=== PATIENT | female | born 1945 | race Caucasian/White ===

== ENCOUNTER 2018-05-13 10:07 | Outpatient (CLI) | payer MEDICARE ==
--- NOTE | 2018-05-13 12:53 | MRI ---
MRI OF LEFT SHOULDER PERFORMED WITHOUT CONTRAST ENHANCEMENT: HISTORY: Left shoulder pain for a couple of months. FINDINGS: There are moderate AC joint hypertrophic changes present. The infraspinatus tendon is intact. Some subchondral cystic change near the insertion of the suprasp inatus tendon on the greater tuberosity and a low- to mid-grade undersurface tear, which is a very sm all focal area measuring 5 mm in size involving the undersurface fibers. The subscapularis muscle and tendon are intact. The biceps tendon is normal in position in the bicip ital groove. The intraarticular portion of the biceps is difficult to visualized. It appears tendin opic. There is some increased signal change extending into the biceps tendon from a very irregular-a ppearing superior labrum. It could indicate a split tear. There are moderate arthritic changes of the glenohumeral joint space. Articular cartilage loss of th e glenoid. The inferior glenohumeral ligament is intact. IMPRESSION: 1. Small focal low- to mid-grade undersurface tear involving the supraspinatus tendon. This only me asures 5-6 mm in width. 2. Irregularity appearance to the superior labrum at the level of the biceps anchor suggesting a deg enerative tear of the superior and posterior superior labrum with tendinopathy change of the biceps t endon and possibly a split tear within the intraarticular portion of the biceps. There are some mode rate arthritic changes to the glenohumeral joint space associated with these findings. POS: GRETCHEN
== END 2018-05-13 10:08 | disposition home or self-care (01) ==
LOC: SCSMRI 10:07
PROVIDERS: ATTEND Orthopaedic Surgery
DX: M75.102 Unspecified rotator cuff tear or rupture of left shoulder, not specified as traumatic (principal)

== ENCOUNTER 2019-03-02 09:48 | Emergency (ER) | payer MEDICARE ==
[2019-03-02 10:33] LABS: Bilirubin Negative (Negative); Blood, Urine Negative (Negative); Clarity Turbid (Clear); Glucose, Urine (Dipstick) Normal (Negative); Leukocyte 500 Leu/uL (Negative); Nitrite Negative (Negative); Protein, Urine (Dipstick) Negative (Neg-Trace); Squamous Epithelial 0-3 HPF (0-3); Urobilinogen Normal mg/dL (Less than 2); WBC/HPF Greater than 50 HPF (0-3)
[2019-03-02 10:51] LABS: Bacteria/HPF 4+ HPF (None Seen); RBC/HPF 0-3 HPF (0-3)
[2019-03-02 11:28] LABS: ALT (SGPT) 17 U/L (8-55); AST (SGOT) 18 U/L (5-34); Albumin 4.1 g/dL (3.4-4.8); Alkaline Phosphatase 68 U/L (40-150); Anion Gap 10 mmol/L (10-20); BUN (Urea Nitrogen) 20 mg/dL (9.8-20.1); Bilirubin, Total 0.4 mg/dL (0.2-1.2); Calc. Creatinine Clearance 0 mL/min (70-130); Calcium 9.4 mg/dL (7.8-10.44); Carbon Dioxide 24 mmol/L (23-31); Chloride 106 mmol/L (98-107); Estimated GFR-MDRD 70; Globulin 2.7 g/dL (2.4-3.5); Glucose 87 mg/dL (83-110); Potassium 3.8 mmol/L (3.5-5.1); Protein, Total 6.8 g/dL (6.0-8.3); Sodium 136 mmol/L (136-145)
[2019-03-02 11:52] LABS: #Neutrophils 2.9 thou/uL (1.40-6.50); %Basophils 0.6 % (0.0-1.0); %Eosinophils 2.2 % (0.0-10.0); %Monocytes 7.1 % (0.0-10.0); Mean Corpuscular HGB CONC 34.2 g/dL (32.0-36.0); Mean Corpuscular Hemoglobin 31.9 pg (27.0-31.0); Mean Corpuscular Volume 93.5 fL (78.0-98.0); Mean Platelet Volume 7.5 fL (7.4-10.4); Platelet Count 218 thou/uL (130-400); Red Blood Cell (RBC) Count 4.06 mill/uL (4.20-5.40); White Blood Cell (WBC) Count 6.3 thou/uL (4.8-10.8)
[2019-03-02 11:53] LABS: #Eosinphils 0.1 thou/uL (0.0-0.7); #Lymphocytes 2.8 thou/uL (1.20-3.40); #Monocytes 0.4 thou/uL (0.11-0.59)
== END 2019-03-02 12:16 | disposition home or self-care (01) ==
LOC: ERS 09:48
DX: N30.00 Acute cystitis without hematuria (principal)
CPT/HCPCS: 36415; 80053; 81003; 81015; 85025; 87040; 87077; 87086; 87186; 99283

== ENCOUNTER 2019-04-20 10:18 | Day surgery (SDC) | payer MEDICARE ==
[2019-04-13 16:55] VITALS: BMI 23.8
[2019-04-13 17:17] LABS: Hemoglobin 12.7 g/dL (12.0-16.0); Mean Corpuscular HGB CONC 34.1 g/dL (32.0-36.0); Mean Corpuscular Hemoglobin 31.5 pg (27.0-31.0); Mean Corpuscular Volume 92.5 fL (78.0-98.0); Mean Platelet Volume 7.7 fL (7.4-10.4); Platelet Count 248 thou/uL (130-400); RBC Distribution Width 12.3 % (11.5-14.5); Red Blood Cell (RBC) Count 4.02 mill/uL (4.20-5.40); White Blood Cell (WBC) Count 6.7 thou/uL (4.8-10.8)
[2019-04-13 17:58] LABS: ALT (SGPT) 19 U/L (8-55); AST (SGOT) 23 U/L (5-34); Albumin 4.2 g/dL (3.4-4.8); Alkaline Phosphatase 61 U/L (40-110); Anion Gap 13 mmol/L (10-20); BUN (Urea Nitrogen) 25 mg/dL (9.8-20.1); Bilirubin, Total 0.2 mg/dL (0.2-1.2); Calc. Creatinine Clearance 49 mL/min (70-130); Calcium 9.3 mg/dL (7.8-10.44); Carbon Dioxide 22 mmol/L (23-31); Chloride 108 mmol/L (98-107); Estimated GFR-MDRD 58; Globulin 2.7 g/dL (2.4-3.5); Glucose 94 mg/dL (83-110); Protein, Total 6.9 g/dL (6.0-8.3); Sodium 139 mmol/L (136-145)
--- NOTE | 2019-04-20 09:27 | HP ---
DATE OF PLANNED SURGERY: 04/20/2019. HISTORY OF PRESENT ILLNESS: Ms. French is a 73-year-old white female with prior hysterectomy, who has been noticing increasing difficulty with bladder emptying along with vaginal bulge. She has had some recurrent UTIs recently before this including early pyelonephritis that she was treated in a hospital setting. She had been referred by her primary care physician, Dr. Escalante for recent UTIs but it became complicated with pyelo. She has had, as noted, prior hysterectomy and had a CAT scan of the abdomen and pelvis during her pyelonephritis admission. There was no hydronephrosis of the kidneys seen or kidney stones. She was noted to have a left-sided pyelo changes noted only. It is noted her most recent new findings over the past year or so has been a vaginal bulge with some difficulty in emptying requiring her to bend forward with a Crede sort of maneuver for emptying. PAST MEDICAL AND SURGICAL HISTORY: She has delivery, a rotator cuff repair in 2015, a colonoscopy in 2011, and hysterectomy with her ovaries remaining in situ in 05/2008. FAMILY HISTORY: Myocardial infarction in her father. 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 No abnormal Pap smears in the past. Pap smear negative in 2007. She has had two pregnancies with two deliveries, one being spontaneous vaginal and one through section. ALLERGIES: TO PENICILLIN WHICH CAUSES A RASH. MEDICATIONS: She is currently on nitrofurantoin 50 mg at bedtime for UTI suppression. SOCIAL HISTORY: Nonsmoker. No excessive alcohol use or drug use reported. PHYSICAL EXAMINATION: VITAL SIGNS: Her height is 5 feet 2 inches, weight 130 pounds, BMI 23.8, blood pressure is 128/76, pulse 83, respirations are 18, O2 saturation on room air is 99%. GENERAL: She is well developed, well nourished, appears younger than her stated age. HEENT: Within normal limits. CHEST: Clear to auscultation. HEART: Regular rate and rhythm. S1 and S2 heart sounds. No murmurs, rubs, or gallops. ABDOMEN: Soft, nontender, nondistended with no palpable masses with a well-healed Pfannenstiel incision site. PELVIC: Vulva and vagina had no lesions. She does have a grade 3 cystocele with some atrophic appearing vaginal mucosa. The cleft appears adequately supported. There is no significant rectocele appreciated on Valsalva exam. Cervix was surgically absent, uterus is surgically absent with no pelvic masses appreciated. ASSESSMENT: This is a 73-year-old white female with prior hysterectomy with recent urinary tract infection and pyelo, most likely related to inability to fully empty bladder from a large cystocele. CAT scan of without hydronephrosis or any kidney stones or ureteral stones. PLAN: Anterior repair. Risks and benefits of the procedure have been discussed in detail. She is set for surgery on 04/20. Job ID: [id number]
[2019-04-20] MEDS ORDERED: Fentanyl 100 MCG/2 ML VIAL ONE (11:38)
[2019-04-20] MEDS ORDERED: Lidocaine 1% w/Epinephrine 1:100K 20 ML VIAL ONE (11:41)
[2019-04-20] MEDS ORDERED: Ondansetron PF 4 MG/2 ML Vial ONE (12:40)
[2019-04-20] MEDS ORDERED: Lidocaine 1% PF 5 ML VIAL ONE (12:40)
[2019-04-20] MEDS ORDERED: Metoclopramide HCl 10 MG/2 ML VIAL ONE (12:40)
[2019-04-20] MEDS ORDERED: PROPOFOL 200 MG/20 ML VIAL ONE (12:40)
[2019-04-20] MEDS ORDERED: Ketorolac Tromethamine 30 MG/ML VIAL ONE (12:40)
[2019-04-20] MEDS ORDERED: Ondansetron HCl/PF 4 MG/2 ML Vial IVP PRN (13:27)
[2019-04-20] MEDS ORDERED: Promethazine HCl 25 MG/ML VIAL SLOW IVP PRN (13:27)
[2019-04-20] MEDS ORDERED: Promethazine HCl 25 MG/ML VIAL IM PRN (13:27)
--- NOTE | 2019-04-20 20:13 | OP ---
DATE OF PROCEDURE: 04/20/2019 PREOPERATIVE DIAGNOSES: 1. Symptomatic grade 3 cystocele. 2. Recurrent urinary tract infections. POSTOPERATIVE DIAGNOSES: 1. Symptomatic grade 3 cystocele. 2. Recurrent urinary tract infections. PROCEDURE PERFORMED: Anterior repair. SEAM FINISHER SURGEON: Emeka Ibarra DO, MS ANESTHESIA: General. ESTIMATED BLOOD LOSS: Less than 10 mL. COMPLICATIONS: None. COUNTS: Correct x2. ANTIBIOTICS: 2 g Ancef on-call to OR. FINDINGS: 1. Anterior cystocele with some grade 1 to 2 anterior vault descent noted. 2. The pelvic fascia was somewhat attenuated in strength. 3. No apparent rectocele on exam. 4. Clear urine present in Trinidad catheter postprocedure. DISPOSITION: Recovery room, stable. DESCRIPTION OF PROCEDURE: The patient previously received informed consent in regard to surgery. She was taken back to the operating room, where she received a general anesthetic agent. She was placed in the dorsal lithotomy position with the use of candy-cane stirrups. Trinidad catheter was placed at this time. Weighted-speculum was placed in the vagina and the vaginal cuff line was grasped with 2 Allis clamps. The anterior vaginal mucosa was infiltrated with 1% lidocaine with epinephrine. A midline anterior vaginal mucosal incision was made at approximately 1.5 cm from the urethral meatus. The edges of the vaginal mucosa were grasped with Allis clamps on each side, and the cystocele was then dissected both sharply and bluntly in its entirety. The endopelvic fascia was then plicated with interrupted sutures of 2-0 Vicryl in the midline reducing the cystocele. The endopelvic fascia was somewhat thin and has good quality as expected. The cystocele was reduced so and then the anterior vaginal mucosa was closed with interrupted [id number] sutures incorporating some of the space with 2-0 Vicryl suture. Trinidad catheter was draining clear urine, and the vaginal vault was packed with a moistened Kerlix. The patient was awakened from anesthesia and transferred to recovery room in stable condition. Job ID: [id number]
[2019-04-20] MEDS ORDERED: Morphine 2 MG/ML SYRINGE SLOW IVP PRN (22:12)
[2019-04-20] MEDS ORDERED: Morphine 4 MG/ML VIAL SLOW IVP PRN (22:15)
[2019-04-20] MEDS ORDERED: Ibuprofen 200 MG TAB PO PRN (22:15)
[2019-04-20] MEDS ORDERED: Acetaminophen 500 MG TAB PO PRN (22:16)
[2019-04-20] MEDS ORDERED: Ondansetron PF 4 MG/2 ML Vial IVP PRN (22:17)
[2019-04-20] MEDS ORDERED: traMADol HCl 50 MG TAB PO PRN (22:17)
[2019-04-21] MEDS: Lactated Ringer's 1,000 ML IV SCH ×2 (00:19→03:25)
[2019-04-21 08:22] VITALS: BP 129/59; TEMP 98.9
--- NOTE | 2019-04-22 04:24 | DIS ---
DATE OF ADMISSION: 04/20/2019 DATE OF DISCHARGE: 04/21/2019 DIAGNOSIS: Symptomatic grade 3 cystocele with history of recurrent urinary tract infections. PROCEDURE PERFORMED: Anterior repair. SUMMARY OF HOSPITAL COURSE: Ms. French is a 73-year-old white female, prior hysterectomy, has been having recurrent UTIs with upper tract infection and was noted to have a grade 3 cystocele with inability to completely empty with emptying issues. She underwent anterior repair on 04/20/2019. At time of surgery, the repair was performed. She was noted to have some marginal endopelvic fascia, but otherwise the repair did accomplish reduction of the cystocele. She has done well postop. She initially had some normal postop urinary retention that has now resolved with postvoid residuals less than 100 times several bladder scan checks. She is ambulating and voiding and tolerating diet well and is ready to go home. She will be discharged home and have followup in 2 and 6 weeks postop. Job ID: [id number]
== END 2019-04-21 08:42 | disposition home or self-care (01) ==
LOC: SDC 10:18 → 3SE 14:07 → SDC 04-21 08:42
PROVIDERS: ATTEND Obstetrics & Gynecology
PROC: 0JQC0ZZ Repair Pelvic Region Subcutaneous Tissue and Fascia, Open Approach (ICD-10-PCS; principal; 2019-04-20)
PROC: 0TJB8ZZ Inspection of Bladder, Via Natural or Artificial Opening Endoscopic (ICD-10-PCS; 2019-04-20)
DX: N81.10 Cystocele, unspecified (principal); N39.0 Urinary tract infection, site not specified; Z79.2 Long term (current) use of antibiotics; Z88.0 Allergy status to penicillin; Z90.710 Acquired absence of both cervix and uterus
CPT/HCPCS: 36415; 80053; 85027; 86850; 86870; 86900; 86901; 86905; 86922; J0690; J1885; J2001; J2405; J2704; J2765; J3010